=== PATIENT | female | born 1960 | race Caucasian/White ===

== ENCOUNTER 2025-03-03 06:48 | Day surgery (SDC) | payer OTHER, SELFPAY ==
--- OUTSIDE RECORDS SUMMARY | 2025-02-21 19:33 | XMS_ITS | Patient Health Record ---
Author Organization [facility] Address [address] [place] [id number] Care Team Providers Care Tools Programmer Name Role Phone Mata PALUMBO, Rivka Primary Care Provider Lyndon Kenyon Jr Unavailable [phone] Allergies Allergen (clinical drug ingredient) Drug/Non Drug Allergy documented on EMR Reaction Allergy Type Onset Date Status Shellfish (FN) Shellfish-derived Products Unknown Drug Allergy Active aspirin Aspirin Unknown Drug Allergy Active Motrin Unknown Drug Allergy Active Latex LATEX (uncoded) Unknown Allergy Acti ve Reason For Referral No Information Medications Medication SIG (Take, Route, Frequency, Duration) Notes Start Date End Date Status Triamcinolone Acetonide 0.5 % 1 application Externally Two times a Week PRN Active Suprep Bowel Prep Kit 17.5-3.13-1.6 GM/177ML 177ml Orally 10/06/2024 Activ e Social History Tobacco Use: Social History Observation Description Date Details (start date - stop date) Never Smoker NA - NA Tobacco Control (Standard) Question Answer Notes Tobacco use: Nonsmoker AUDIT-C (Standard) Question Answer Notes Did you have a drink contain ing alcohol in the past year? Yes How often did you have a dri nk containing alcohol in the past year? Never (0 point) How many drinks did you have on a typical day when you were drinking in the past year? 1 or 2 drinks (0 point) How often did you have six o r more drinks on one occasion in the past year? Never (0 point) Points 0 Interpretation Negative Problems Problem Type SNOMED Code ICD Code Onset Dates Problem Status W/U Status Risk Notes Problem Screening for malignant neoplasm of colon (238465683) Encounter for screening for malignant neoplasm of colon (Z12.11) Active confirmed Problem Abdominal bloating (169704211) Abdominal bloating (R14.0) Active confirmed Problem Personal history of adenomatous and serrated colon polyps (Z86.0101) Active confirmed Vital Signs Blood pressure diastolic 77 mm Hg 10/06/2024 Height 63.5 in 10/06/2024 Blood pressure systolic 111 mm Hg 10/06/2024 Weight 116 lbs 10/06/2024 BMI 20.22 kg/m2 10/06/2024 Encounters Encounter Location Date Provider Diagnosis [facility] [address] [place] [address] 10/06/2024 Lyndon Dyson Jr Encounter for screening for malignant neoplasm of colon Z12.11 ; Abdominal bloating R14.0 and Personal history of adenomatous and serrated colon polyps Z86.0101 Assessments Encounter Date Diagnosis (ICD Code) Assessment Notes Treatment Notes Treatment Clinical Notes Section Notes 10/06/2024 Encounter for screening for malignant neoplasm of colon (ICD-10 - Z12.11) We discussed her symptoms today. She can use nqvm-qpo-hubpvw r simethicone for control of her abdominal bloating. We discussed this in detail today. She is due for colorectal cancer screening. This will be arranged. She understands risks and benefits of the procedure and agrees to proceed. 10/06/2024 Abdominal bloating (ICD-10 - R14.0) We discussed her symptoms today. She can use tenp-oxd-osmtns r simethicone for control of her abdominal bloating. We discussed this in detail today. She is due for colorectal cancer screening. This will be arranged. She understands risks and benefits of the procedure and agrees to proceed. 10/06/2024 Personal history of adenomatous and serrated colon polyps (ICD-10 - Z86.0101) We discussed her symptoms today. She can use gggn-kct-ludiah r simethicone for control of her abdominal bloating. We discussed this in detail today. She is due for colorectal cancer screening. This will be arranged. She understands risks and benefits of the procedure and agrees to proceed. Plan Of Treatment Future Test Test Name Order Date COLONOSCOPY 10/06/2024 Next Appt Details Provider Name:Lyndon arellano Jr, 03/03/2025 08:10:00 AM, [address] [place] [address] , [place], [place], [id number], Insurance Providers Payer Name Payer Address Payer Phone Subscriber Number Group Number Insured Name Patient Relationship to Insured Coverage Start Date Coverage End Date [facility] [address] [place] [address] [phone] [id number] CORINNE PINO Self - patient is the insured 4 Medical (General) History Medical History History ICD Code Eczema Microscopic hematuria Osteoporosis Colonoscopy 01/21, negative f or adenomas, prior personal history of adenomas and family history of colon polyps, 5-year follow-up Surgical History Surgery Date(Month/Year) Vocal cord polyp removal Varicose vein surgery [place] teeth extractions Lumpectomy, left breast
[2025-03-01 12:16] VITALS: BMI 20.2
--- NOTE | 2025-03-01 13:17 | P.CONAN_ITS ---
Documented by User: Glo Donohue NP 03/01/25 13:17 HPI - Anesthesia Eval Consult details Narrative: 64yo F for Colonoscopy [facility] Past Medical History Medical History Osteoporosis Microscopic hematuria Eczema Surgical History Surgical History History of vocal cord polypectomy Hx of varicose vein ligation Hx of wisdom tooth extraction History of lumpectomy of left breast H/O colonoscopy Social History Social History (Updated 03/01/25 @ 12:19 by Gayatri Naegl RN) Household Members: Spouse Patient Tobacco Use Status: Never used Tobacco Use of substances other than those prescribed or required for medical reasons: No Are you DNR?: No Advance Directives: No Advance Directives Information Provided: Yes Meds Allergies Allergy/AdvReac Type Severity Reaction Status Date / Time aspirin Allergy Unknown Unknown Verified 03/01/25 12:16 ibuprofen (From Motrin) Allergy Unknown Unknown Verified 03/01/25 12:16 latex Allergy Unknown Unknown Verified 03/01/25 12:16 shellfish derived (shellfish) Allergy Unknown Unknown Verified 03/01/25 12:16 Home Medications ?Medication ?Instructions ?Recorded ?Confirmed ?Last Taken ?Type triamcinolone acetonide 0.1 % 1 appl topical BID 03/0103/01/25 Unknown History topical ointment Exam Height,Weight and Vital Signs: Height 5 ft 3.5 in Weight 52.617 kg Assessment and Plan Assessment Anesthesia Assessment: Chart Reviewed Documented by User: Jose Dalal MD 03/03/25 08:01 [facility] Past Medical History Medical History Osteoporosis Microscopic hematuria Eczema Family History Family history of problems with anesthesia: No Surgical History Surgical History History of vocal cord polypectomy Hx of varicose vein ligation Hx of wisdom tooth extraction History of lumpectomy of left breast H/O colonoscopy History of Problems with Anesthesia: No Social History Social History (Updated 03/01/25 @ 12:19 by Gayatri Nagel RN) Household Members: Spouse Patient Tobacco Use Status: Never used Tobacco Use of substances other than those prescribed or required for medical reasons: No Are you DNR?: No Advance Directives: No Advance Directives Information Provided: Yes Meds Allergies Allergy/AdvReac Type Severity Reaction Status Date / Time aspirin Allergy Unknown Unknown Verified 03/01/25 12:16 ibuprofen (From Motrin) Allergy Unknown Unknown Verified 03/01/25 12:16 latex Allergy Unknown Unknown Verified 03/01/25 12:16 shellfish derived (shellfish) Allergy Unknown Unknown Verified 03/01/25 12:16 Home Medications ?Medication ?Instructions ?Recorded ?Confirmed ?Last Taken ?Type triamcinolone acetonide 0.1 % 1 appl topical BID 03/0103/01/25 Unknown History topical ointment Exam Airway Mallampati Class: I TM Dist: >3cm Neck ROM: Full Loose/Missing/Broken Teeth: No Heart: ok Lungs: ok Assessment and Plan Assessment Anesthesia Assessment: Anesthesia Plan Discussed Final Anesthetic Review Family History of Problems with Anesthesia: No History of Problems with Anesthesia: No NPO: Yes ASA Class: II Final Preanesthetic Review: No Changes in Pt Med Stat, Meds/Allgs Chart Reviewed, Consent Obtained/Reviewed and Anes Risks/Benef Reviewed Patient Risk: Intermediate Procedure Risk: Low Anesthetic Plan Anesthetic Plan: MAC: and Agree w/ Assess. and Plan Disposition: Standard PACU
[2025-03-03 07:03] VITALS: BMI 19.4
[2025-03-03 07:21] VITALS: BP 122/70; PULSE 100; RESP 18; TEMP 37.2; O2SAT 100
[2025-03-03] MEDS: Lactated Ringers 1,000 ML 100 ML IVCONT (07:25)
--- NOTE | 2025-03-03 07:32 | MHC.SHP ---
Pre-Procedural Eval Section A - 24 Hr Update-Section A only Date of Service: 03/03/25 Section B - Complete if H&P > 30 days Chief Complaint: Encounter for screening for malignant neoplasm of Details of Present Illness: see H&P no changes Relevant Family History (Specify if Yes): No Relevant Social History: None Present Medications: see Short Stay Collaborative assessment Medical History: No relevant PMH History of Previous Operations: No relevant previous surgery Allergies: Allergies Allergy/AdvReac Type Severity Reaction Status Date / Time aspirin Allergy Unknown Unknown Verified 03/01/25 12:16 ibuprofen (From Motrin) Allergy Unknown Unknown Verified 03/01/25 12:16 latex Allergy Unknown Unknown Verified 03/01/25 12:16 shellfish derived (shellfish) Allergy Unknown Unknown Verified 03/01/25 12:16 Review of Systems Sugical H&P ROS: Negative: Constitution, Cardiovascular, Respiratory, Neurological, Psychiatric, Hem-Onc, Allergic/Immunologic, Gastrointestinal, Genitourinary, Musculoskeletal, Integumentary, Endocrine and Eyes/Ears/Nose/Throat Exam Surgical H&P Exam: Normal: HEENT, Normal: Heart, Normal: Lungs, Normal: Extremities, Normal: Abdomen, Normal: Skin and Normal: Neurological Plan Diagnosis/Plan: Unchanged I have reviewed the history and physical and performed a pertinent physical examination on my patient. No changes have occurred unless specified. Time Spent With Patient Time: Total time managing care of this patient today ____ minutes.
[2025-03-03 08:51] VITALS: BP 93/45; PULSE 80; RESP 17; TEMP 36.9; O2SAT 96
[2025-03-03 09:00] VITALS: BP 107/64; PULSE 79; RESP 17; O2SAT 98
--- NOTE | 2025-03-03 09:13 | OP_ITS ---
DATE OF SERVICE: 03/03/2025 SURGEON: Lyndon Dyson MD INDICATIONS: Colon cancer screening. PREOPERATIVE DIAGNOSIS: POSTOPERATIVE DIAGNOSIS: PROCEDURE PERFORMED: Colonoscopy to the terminal ileum with biopsy and snare polypectomy. ESTIMATED BLOOD LOSS: COMPLICATIONS: ANESTHESIA: Monitored anesthesia care. ASSISTANTS: SPECIMENS: DESCRIPTION OF PROCEDURE: A history and physical was performed. The risks and benefits of the procedure were explained to the patient, and informed consent was obtained. The patient was placed in a left lateral decubitus position. A digital rectal exam was performed and showed some small external hemorrhoids. The Olympus pediatric video colonoscope was introduced into the rectum and advanced to the cecum. The cecum was identified by transillumination, palpation, and identification of ileocecal valve. Examination was performed. The scope was removed. She tolerated the procedure well and was returned to the recovery area in stable condition. FINDINGS: The terminal ileum was examined and appeared normal. The visualized colonic mucosa was normal. The quality of the prep was good. Two polyps were identified, both located in the transverse colon. The 1st measured less than 5 mm and was removed with a biopsy forceps. The 2nd measured approximately 8 to 10 mm and was removed with a hot snare and recovered via suction. No other polyps were seen. Retroflexed examination showed small internal hemorrhoids. IMPRESSION: Colon polyp. RECOMMENDATION: Follow up the biopsy results. MD BERYL Herman/OBEY / [id number]
[2025-03-03 09:15] VITALS: BP 113/62; PULSE 76; RESP 17; TEMP 36.9; O2SAT 98
== END 2025-03-03 09:37 | disposition home or self-care (01) ==
PROVIDERS: PCP Internal Medicine Geriatric Medicine; Visit Provider Internal Medicine Gastroenterology
PROC: 0DJD8ZZ Inspection of Lower Intestinal Tract, Via Natural or Artificial Opening Endoscopic (ICD-10-PCS; CPT 45378; principal; 2025-03-03 08:10)
DX: Z12.11 Encounter for screening for malignant neoplasm of colon (principal); Z86.0101 Personal history of adenomatous and serrated colon polyps; D12.3 Benign neoplasm of transverse colon; Z83.719 Family history of colon polyps, unspecified; K64.8 Other hemorrhoids; K64.4 Residual hemorrhoidal skin tags; R31.29 Other microscopic hematuria; L30.9 Dermatitis, unspecified; M81.0 Age-related osteoporosis without current pathological fracture; Z79.899 Other long term (current) drug therapy; Z88.6 Allergy status to analgesic agent; Z91.040 Latex allergy status; Z98.890 Other specified postprocedural states
CPT/HCPCS: 45385; 45380; 88305; J2003; J2704